=== PATIENT | female | born 1995 | race African-American/Black ===

== ENCOUNTER 2017-03-29 07:54 | Emergency (ER) | payer SELFPAY ==
[~2017-03-29 07:54] MED LIST: FLEXERIL10 MG PO; IBUPROFEN800 MG PO
== END 2017-03-29 08:16 | disposition home or self-care (01) ==
LOC: CED 07:54
DX: R51 Headache (principal); B00.1 Herpesviral vesicular dermatitis; F17.200 Nicotine dependence, unspecified, uncomplicated
CPT/HCPCS: 99282